=== PATIENT | male | born 1975 | race Two or more races ===

== ENCOUNTER 2017-03-13 19:23 | Emergency (ER) | payer MEDICAID, OTHER ==
[~2017-03-13] VITALS: Ht 172.7 cm; Wt 68.0 kg
--- NOTE | 2017-03-13 19:32 | NUR ---
PT BIBRA TO ER BED 11. PER REPORT, ETOH. ADMITS TO DRINKING. DENIES ANY MEDICAL COMPLAINTS AT THIS TIME. STABLE VITALS. AWAITING MD BASSETT.
--- NOTE | 2017-03-13 21:58 | NUR ---
LEODAN REACH TRUCK OPERATOR AT BEDSIDE FOR EVAL.
[2017-03-13] MEDS ORDERED: THIAMINE HCL 100 MG TABLET PO ONE (22:00)
[2017-03-13] MEDS ORDERED: THIAMINE HCL 100 MG TABLET ONE (22:07)
--- NOTE | 2017-03-13 22:12 | NUR ---
TRIED ROAD TESTING PT. UNSTEADY GAIT. RETURNED TO BED. WILL CONTINUE TO MONITOR.
--- NOTE | 2017-03-13 23:08 | NUR ---
MARSII AT BEDSIDE FOR RE EVAL. PT NOW STATING HE IS SUICIDAL W/ PLAN ON JUMPING OFF A BRIDGE. WILL CONTINUE TO MONITOR.
[2017-03-13 23:32] LABS: BASOPHILS # (AUTO) 0.2 /CMM (0.0-0.2); BASOPHILS % (AUTO) 2.7 % (0.0-2.0); EOSINOPHILS # (AUTO) 0.6 /CMM (0.0-0.7); EOSINOPHILS % (AUTO) 9.6 % (0.0-6.0); HEMATOCRIT 37 % (39-51); HEMOGLOBIN 12.3 g/dL (13.5-17.5); LYMPHOCYTES # (AUTO) 3.1 /CMM (0.8-4.8); LYMPHOCYTES % (AUTO) 48.2 % (20.0-44.0); MEAN CORPUSCULAR HEMOGLOBIN 28 PG (26.0-33.0); MEAN CORPUSCULAR HGB CONC 33 g/dl (31.0-36.0); MEAN CORPUSCULAR VOLUME 86 fL (80-96); MONOCYTES # (AUTO) 0.6 /CMM (0.1-1.30); MONOCYTES % (AUTO) 8.8 % (2.0-12.0); NEUTROPHILS % (AUTO) 30.7 % (43.0-81.0); PLATELET COUNT (AUTO) 605 /CMM (150-450); RDW COEFFICIENT OF VARIATION 21.2 (11.5-15.0); RED BLOOD CELL COUNT(AUTO) 4.37 MIL/uL (4.5-6.0); WHITE BLOOD COUNT (AUTO) 6.4 K/uL (4.3-11.0)
[2017-03-13 23:44] LABS: CALCIUM, SERUM 7.9 mg/dL (8.5-10.1); CREATININE 0.7 mg/dL (0.6-1.3); POTASSIUM 3.7 mmol/L (3.5-5.1)
[2017-03-13 23:50] LABS: ALBUMIN 3.7 g/dL (3.4-5.0); BILIRUBIN,TOTAL 0.2 mg/dL (0.2-1.0); SALICYLATE 7.5 mg/dL (2.8-20.0); TOTAL PROTEIN, SERUM 7.1 g/dL (6.4-8.2)
[2017-03-14] LABS: APPEARANCE,URINE CLEAR (CLEAR); BILIRUBIN,URINE NEGATIVE (NEGATIVE); BLOOD, URINE NEGATIVE Ery/uL (NEGATIVE); COLOR,URINE YELLOW (YELLOW); KETONES,URINE NEGATIVE (NEGATIVE); LEUKOCYTE ESTERASE ,URINE NEGATIVE (NEGATIVE); NITRITE, URINE NEGATIVE (NEGATIVE); PH,URINE 5.5 (5.0-8.0); PROTEIN,URINE NEGATIVE (NEGATIVE); UGLUCOSE NEGATIVE (NEGATIVE); UROBILINOGEN,URINE 0.2 EU/dL (0.2)
--- NOTE | 2017-03-14 02:20 | NUR ---
PT RESTING IN GURNEY. NO SIGNS OF DISTRESS NOTED. PT VITAL SIGNS NORMAL. PT EASILY AROUSABLE. WILL CONT TO MONITOR PT.
--- NOTE | 2017-03-14 10:12 | NUR ---
FOOD TRAY CALLED FOR PT.
[2017-03-14 12:00] VITALS: BP 111/70
== END 2017-03-14 12:04 | disposition home or self-care (01) ==
LOC: ER 19:24
DX: F10.129 Alcohol abuse with intoxication, unspecified (principal); Z88.0 Allergy status to penicillin
CPT/HCPCS: 36415; 80048-TC; 80076-TC; 80305; 81000-TC; 85025-TC; A4606; G0480; Z7610

== ENCOUNTER 2017-08-26 20:05 | Emergency (ER) | payer MEDICAID ==
[~2017-08-26] VITALS: Ht 172.7 cm; Wt 63.5 kg
[2017-08-26 20:50] LABS: BASOPHILS # (AUTO) 0.1 /CMM (0.0-0.2); BASOPHILS % (AUTO) 1.3 % (0.0-2.0); EOSINOPHILS # (AUTO) 0.5 /CMM (0.0-0.7); EOSINOPHILS % (AUTO) 5.8 % (0.0-6.0); HEMATOCRIT 41 % (39-51); HEMOGLOBIN 13.5 g/dL (13.5-17.5); LYMPHOCYTES # (AUTO) 3.1 /CMM (0.8-4.8); LYMPHOCYTES % (AUTO) 36.4 % (20.0-44.0); MEAN CORPUSCULAR HEMOGLOBIN 29 PG (26.0-33.0); MEAN CORPUSCULAR HGB CONC 33 g/dl (31.0-36.0); MEAN CORPUSCULAR VOLUME 87 fL (80-96); MONOCYTES # (AUTO) 0.6 /CMM (0.1-1.30); MONOCYTES % (AUTO) 6.7 % (2.0-12.0); NEUTROPHILS # (AUTO) 4.2 /CMM (1.8-8.9); NEUTROPHILS % (AUTO) 49.8 % (43.0-81.0); PLATELET COUNT (AUTO) 718 /CMM (150-450); WHITE BLOOD COUNT (AUTO) 8.5 K/uL (4.3-11.0)
[2017-08-26 21:00] LABS: CALCIUM, SERUM 8.3 mg/dL (8.5-10.1); CARBON DIOXIDE 28 mmol/L (21-32); CHLORIDE 98 mmol/L (98-107); CREATININE 0.7 mg/dL (0.6-1.3); GLUCOSE 85 mg/dL (74-106); POTASSIUM 3.8 mmol/L (3.5-5.1); SODIUM SERUM 133 mmol/L (136-145); UREA NITROGEN, BLOOD 7 mg/dL (7-18)
[2017-08-26 21:07] LABS: ALANINE AMINOTRANSFERASE 20 U/L (12-78); ALBUMIN 3.6 g/dL (3.4-5.0); ALCOHOL, BLOOD 385 mg/dL (0-0); ALKALINE PHOSPHATASE 68 U/L (46-116); ASPARTATE AMINOTRANSFERASE 24 U/L (15-37); BILIRUBIN,DIRECT 0.1 mg/dL (0.0-0.2); BILIRUBIN,TOTAL 0.1 mg/dL (0.2-1.0); SALICYLATE 8.5 mg/dL (2.8-20.0); TOTAL PROTEIN, SERUM 7.5 g/dL (6.4-8.2)
[2017-08-26 21:08] LABS: ACETAMINOPHEN < 2 ug/ml (10-30)
--- NOTE | 2017-08-26 22:30 | NUR ---
PT SLEEPING IN NAD, VSS WILL CONTINUE TO MONITOR
[2017-08-26 22:42] LABS: APPEARANCE,URINE CLEAR (CLEAR); BILIRUBIN,URINE NEGATIVE (NEGATIVE); BLOOD, URINE NEGATIVE Ery/uL (NEGATIVE); COLOR,URINE YELLOW (YELLOW); KETONES,URINE NEGATIVE (NEGATIVE); LEUKOCYTE ESTERASE ,URINE NEGATIVE (NEGATIVE); NITRITE, URINE NEGATIVE (NEGATIVE); PROTEIN,URINE NEGATIVE (NEGATIVE); UGLUCOSE NEGATIVE (NEGATIVE); UROBILINOGEN,URINE 0.2 EU/dL (0.2)
--- NOTE | 2017-08-27 01:00 | NUR ---
Patient is resting comfortably in bed with eyes closed. Easily aroused. VSS
[2017-08-27] MEDS ORDERED: GUAIFENESIN/CODEINE 10 ML UDC PO PRN (01:30)
[2017-08-27] MEDS ORDERED: TRAMADOL HCL 50 MG TABLET PO ONE (01:30)
--- NOTE | 2017-08-27 04:00 | NUR ---
Patient is resting comfortably in bed with eyes closed. Easily aroused. VSS
--- NOTE | 2017-08-27 07:25 | NUR ---
Patient given written and verbal discharge instructions. Patient verbalizes understanding of instructions. Patient is ambulatory with steady gait. Refuses offer of long term placement. Patient given list of available shelters in surrounding area.
[2017-08-27 07:26] VITALS: BP 110/65
== END 2017-08-27 07:26 | disposition home or self-care (01) ==
LOC: ER 20:06
DX: F10.129 Alcohol abuse with intoxication, unspecified (principal); F14.10 Cocaine abuse, uncomplicated; Z59.0 Homelessness; F20.9 Schizophrenia, unspecified; Z88.0 Allergy status to penicillin
CPT/HCPCS: 36415; 80048; 80076; 80305; 80329; 81001; 85025; 99284; A4606; G0480 ×2; Z7610; 81000-TC

== ENCOUNTER 2017-08-28 19:38 | Emergency (ER) | payer MEDICAID ==
[~2017-08-28] VITALS: Ht 172.7 cm; Wt 63.5 kg
[2017-08-28 19:45] VITALS: BP 136/72
== END 2017-08-28 22:00 | disposition left against medical advice (07) ==
LOC: ER 19:39
DX: Z53.21 Procedure and treatment not carried out due to patient leaving prior to being seen by health care provider (principal)
CPT/HCPCS: A4606; Z7610

== ENCOUNTER 2017-08-29 22:25 | Emergency (ER) | payer MEDICAID ==
[~2017-08-29] VITALS: Ht 167.6 cm; Wt 72.6 kg
--- NOTE | 2017-08-30 03:26 | NUR ---
TO BED 7 A 42 YO MALE PATIENT BIBRA "CP WHILE IN CUSTODY; GIVEN ASA 162MG PO AND 1 NTG SPRAY ESTIMATOR" UPON ARRIVAL, PATIENT IS ALERT AND RESPONSIVE. VSS. NAD NOTED. BREATHING EVEN AND UNLABORED. NONDIAPHORETIC. DENIES CP OR ANY COMPLAINTS. ADMITS TO DRINKING ETOH. COMFORT MEASURES RENDERED.
[2017-08-30 04:35] LABS: BASOPHILS # (AUTO) 0.1 /CMM (0.0-0.2); BASOPHILS % (AUTO) 1.1 % (0.0-2.0); EOSINOPHILS # (AUTO) 0.3 /CMM (0.0-0.7); EOSINOPHILS % (AUTO) 2.4 % (0.0-6.0); HEMATOCRIT 36 % (39-51); HEMOGLOBIN 11.7 g/dL (13.5-17.5); LYMPHOCYTES # (AUTO) 2.4 /CMM (0.8-4.8); LYMPHOCYTES % (AUTO) 17.8 % (20.0-44.0); MEAN CORPUSCULAR HEMOGLOBIN 28 PG (26.0-33.0); MEAN CORPUSCULAR HGB CONC 33 g/dl (31.0-36.0); MEAN CORPUSCULAR VOLUME 86 fL (80-96); MONOCYTES # (AUTO) 1.4 /CMM (0.1-1.30); MONOCYTES % (AUTO) 10.7 % (2.0-12.0); NEUTROPHILS # (AUTO) 9.2 /CMM (1.8-8.9); PLATELET COUNT (AUTO) 591 /CMM (150-450); RDW COEFFICIENT OF VARIATION 17.4 (11.5-15.0); RED BLOOD CELL COUNT(AUTO) 4.13 MIL/uL (4.5-6.0); WHITE BLOOD COUNT (AUTO) 13.5 K/uL (4.3-11.0)
[2017-08-30 04:38] LABS: CALCIUM, SERUM 9.3 mg/dL (8.5-10.1); CARBON DIOXIDE 27 mmol/L (21-32); CHLORIDE 101 mmol/L (98-107); CREATININE 0.7 mg/dL (0.6-1.3); GLUCOSE 84 mg/dL (74-106); POTASSIUM 4.2 mmol/L (3.5-5.1); SODIUM SERUM 139 mmol/L (136-145); UREA NITROGEN, BLOOD 11 mg/dL (7-18)
--- NOTE | 2017-08-30 04:41 | NUR ---
PATIENT UNABLE TO PROVIDE URINE AT THIS TIME. HE SAID, " I TRIED, I CANT GO."
[2017-08-30 04:44] LABS: ALANINE AMINOTRANSFERASE 25 U/L (12-78); ALBUMIN 3.7 g/dL (3.4-5.0); ALCOHOL, BLOOD < 3 mg/dL (0-0); ALKALINE PHOSPHATASE 57 U/L (46-116); ASPARTATE AMINOTRANSFERASE 24 U/L (15-37); BILIRUBIN,DIRECT 0.1 mg/dL (0.0-0.2); BILIRUBIN,TOTAL 0.5 mg/dL (0.2-1.0); SALICYLATE 9.1 mg/dL (2.8-20.0)
[2017-08-30 04:45] LABS: ACETAMINOPHEN 0 ug/ml (10-30)
[2017-08-30 05:55] LABS: APPEARANCE,URINE CLEAR (CLEAR); BILIRUBIN,URINE NEGATIVE (NEGATIVE); BLOOD, URINE NEGATIVE Ery/uL (NEGATIVE); COLOR,URINE YELLOW (YELLOW); KETONES,URINE 1+ (NEGATIVE); LEUKOCYTE ESTERASE ,URINE NEGATIVE (NEGATIVE); NITRITE, URINE NEGATIVE (NEGATIVE); PROTEIN,URINE TRACE mg/dl (NEGATIVE); UGLUCOSE NEGATIVE (NEGATIVE); UROBILINOGEN,URINE 0.2 EU/dL (0.2)
[2017-08-30 06:01] LABS: BACTERIA,URINE Few /HPF (None Seen); MUCUS,URINE Moderate /LPF (None Seen); RBC,URINE 0-2 /HPF (0-2); SQUAMOUS EPITHELIAL CELL,UR Few /HPF (None Seen); WBC,URINE 0-2 /HPF (0-3)
--- NOTE | 2017-08-30 08:01 | NUR ---
PAGED FELI GILLESPIE FOR EVAL
--- NOTE | 2017-08-30 08:26 | NUR ---
Patient is resting comfortably in bed with eyes closed. Easily aroused. VSS
--- NOTE | 2017-08-30 10:11 | NUR ---
FELI, COLLAR FELLER AT FOR PSYCH EVAL.
--- NOTE | 2017-08-30 11:30 | NUR ---
PT ACCEPTED TO [facility] , NUMBER TO GIVE REPORT IS [phone]
--- NOTE | 2017-08-30 11:33 | NUR ---
CALLED [facility] FOR TRANSPORT TO [facility], ETA 1 HOUR, TRIP #[id number]
[2017-08-30 11:36] VITALS: BP 136/73
--- NOTE | 2017-08-30 11:50 | NUR ---
FOOD TRAY PROVIDED AT
--- NOTE | 2017-08-30 12:31 | NUR ---
REPORT GIVEN TO ALBERTO ANDRADE FOR [facility].
--- NOTE | 2017-08-30 12:54 | NUR ---
REPORT GIVEN TO GADIEL SAMAYOA FOR TRANSPORT TO [facility]
== END 2017-08-30 12:55 ==
LOC: ER 22:27
DX: R45.851 Suicidal ideations (principal); D64.9 Anemia, unspecified; F32.9 Major depressive disorder, single episode, unspecified; F20.9 Schizophrenia, unspecified; Z88.0 Allergy status to penicillin
CPT/HCPCS: 36415; 80048; 80076; 80305; 80329; 81001; 85025; 93005; 99285; A4606; G0480 ×2; Z7610; 81000-TC

== ENCOUNTER 2017-09-12 20:02 | Emergency (ER) | payer MEDICAID ==
[~2017-09-12] VITALS: Ht 175.3 cm; Wt 65.8 kg
[2017-09-12 20:31] LABS: BASOPHILS # (AUTO) 0.2 /CMM (0.0-0.2); BASOPHILS % (AUTO) 1.6 % (0.0-2.0); EOSINOPHILS # (AUTO) 0.7 /CMM (0.0-0.7); EOSINOPHILS % (AUTO) 7.4 % (0.0-6.0); HEMATOCRIT 38 % (39-51); LYMPHOCYTES # (AUTO) 3.2 /CMM (0.8-4.8); LYMPHOCYTES % (AUTO) 33.3 % (20.0-44.0); MEAN CORPUSCULAR HEMOGLOBIN 29 PG (26.0-33.0); MEAN CORPUSCULAR HGB CONC 34 g/dl (31.0-36.0); MEAN CORPUSCULAR VOLUME 84 fL (80-96); MONOCYTES # (AUTO) 0.3 /CMM (0.1-1.30); MONOCYTES % (AUTO) 3.5 % (2.0-12.0); NEUTROPHILS # (AUTO) 5.3 /CMM (1.8-8.9); NEUTROPHILS % (AUTO) 54.2 % (43.0-81.0); PLATELET COUNT (AUTO) 571 /CMM (150-450); RDW COEFFICIENT OF VARIATION 16.1 (11.5-15.0); RED BLOOD CELL COUNT(AUTO) 4.53 MIL/uL (4.5-6.0); WHITE BLOOD COUNT (AUTO) 9.7 K/uL (4.3-11.0)
--- NOTE | 2017-09-12 20:36 | NUR ---
"I FEEL LIKE SOMEONE'S TRYING TO KILL ME; IT'S NOT INSIDE MY HEAD, IT'S OUTSIDE" PATIENT ADMITTED DRINKING, PATIENT IS AWAKE AND ALERT, NOT IN DISTRESS. VSS
[2017-09-12 21:15] LABS: CALCIUM, SERUM 8.5 mg/dL (8.5-10.1); CREATININE 0.8 mg/dL (0.6-1.3); POTASSIUM 3.1 mmol/L (3.5-5.1)
--- NOTE | 2017-09-12 23:41 | NUR ---
PT WAS TAKEN TO CT
--- NOTE | 2017-09-13 05:10 | NUR ---
art operating room assistant at bedside for eval.
--- NOTE | 2017-09-13 06:07 | NUR ---
pt ok to discharge per dr razo. Patient discharged to home in stable condition. Written and verbal after care instructions given. Patient verbalizes understanding of instruction.Patient is awake and alert to self, day, and place. pt ambulatory with a steady gait
[2017-09-13 06:08] VITALS: BP 115/69
== END 2017-09-13 06:09 | disposition home or self-care (01) ==
LOC: ER 20:03
DX: F10.129 Alcohol abuse with intoxication, unspecified (principal); F44.0 Dissociative amnesia; F20.9 Schizophrenia, unspecified; D64.9 Anemia, unspecified; Z88.0 Allergy status to penicillin; Z59.0 Homelessness; Z60.2 Problems related to living alone
CPT/HCPCS: 36415; 80048-TC; 85025-TC; A4606; G0480; Z7610

== ENCOUNTER 2017-09-19 20:42 | Emergency (ER) | payer MEDICAID ==
[~2017-09-19] VITALS: Ht 172.7 cm; Wt 72.6 kg
[2017-09-19 21:38] LABS: BASOPHILS # (AUTO) 0.1 /CMM (0.0-0.2); BASOPHILS % (AUTO) 1.1 % (0.0-2.0); EOSINOPHILS # (AUTO) 0.5 /CMM (0.0-0.7); EOSINOPHILS % (AUTO) 5.6 % (0.0-6.0); HEMATOCRIT 38 % (39-51); LYMPHOCYTES # (AUTO) 2.7 /CMM (0.8-4.8); LYMPHOCYTES % (AUTO) 33.1 % (20.0-44.0); MEAN CORPUSCULAR HEMOGLOBIN 29 PG (26.0-33.0); MEAN CORPUSCULAR HGB CONC 34 g/dl (31.0-36.0); MEAN CORPUSCULAR VOLUME 84 fL (80-96); MONOCYTES # (AUTO) 0.4 /CMM (0.1-1.30); MONOCYTES % (AUTO) 4.6 % (2.0-12.0); NEUTROPHILS # (AUTO) 4.4 /CMM (1.8-8.9); NEUTROPHILS % (AUTO) 55.6 % (43.0-81.0); PLATELET COUNT (AUTO) 469 /CMM (150-450); RDW COEFFICIENT OF VARIATION 16.5 (11.5-15.0); RED BLOOD CELL COUNT(AUTO) 4.58 MIL/uL (4.5-6.0); WHITE BLOOD COUNT (AUTO) 8.1 K/uL (4.3-11.0)
[2017-09-19 21:48] LABS: CREATININE 0.7 mg/dL (0.6-1.3); POTASSIUM 3.7 mmol/L (3.5-5.1)
[2017-09-19 21:55] LABS: ALBUMIN 3.3 g/dL (3.4-5.0); BILIRUBIN,DIRECT 0.1 mg/dL (0.0-0.2); BILIRUBIN,TOTAL 0.1 mg/dL (0.2-1.0); SALICYLATE 9.4 mg/dL (2.8-20.0); TOTAL PROTEIN, SERUM 7.1 g/dL (6.4-8.2)
[2017-09-19 21:57] LABS: CALCIUM, SERUM 8.2 mg/dL (8.5-10.1)
--- NOTE | 2017-09-19 22:30 | NUR ---
PT BIB SELF FROM SELF, PT STATES HE WANTS TO KILL HIMSELF DENIES HI NO PLAN. + ETOH. VSS
--- NOTE | 2017-09-19 22:33 | NUR ---
CALLED ART FOR PSYCH EVAL, SAID HE CAN NOT SEE PT WITH THAT HIGH OF AN ALCOHOL (360), WILL CALL BACK FOR PSYCH EVAL ONCE PT'S ALCOHOL LEVEL GOES DOWN.
--- NOTE | 2017-09-19 22:53 | NUR ---
REFUSED TO GIVE URINE SAMPLE AT THIS TIME.
[2017-09-20 06:13] LABS: BILIRUBIN,URINE NEGATIVE (NEGATIVE); BLOOD, URINE NEGATIVE Ery/uL (NEGATIVE); COLOR,URINE YELLOW (YELLOW); KETONES,URINE NEGATIVE (NEGATIVE); LEUKOCYTE ESTERASE ,URINE TRACE (NEGATIVE); NITRITE, URINE POSITIVE (NEGATIVE); PROTEIN,URINE NEGATIVE (NEGATIVE); UGLUCOSE NEGATIVE (NEGATIVE); UROBILINOGEN,URINE 0.2 EU/dL (0.2)
[2017-09-20 06:16] LABS: APPEARANCE,URINE SLIGHTLY CLOUDY (CLEAR)
[2017-09-20 06:26] LABS: BACTERIA,URINE 3+ /HPF (None Seen); RBC,URINE 0-2 /HPF (0-2); SQUAMOUS EPITHELIAL CELL,UR 0-2 /HPF (None Seen)
--- NOTE | 2017-09-20 07:28 | NUR ---
APPEARS ASLEEP,RESP EVEN,UNLABORED,EASILY AROUSABLE, AWAITING MED CLEARANCE FOR PSYCH EVAL
--- NOTE | 2017-09-20 08:07 | NUR ---
SUPERVISOR CD AREA AT BEDSIDE FOR BLOOD DRAW.
--- NOTE | 2017-09-20 08:13 | NUR ---
[facility] [phone]
--- NOTE | 2017-09-20 09:10 | NUR ---
sandy refund clerk at bedside for eval
--- NOTE | 2017-09-20 09:52 | NUR ---
CALLED TRANSPORT ETA IS 40MIN PER [facility]AN TRIP NUMBER: [id number]
--- NOTE | 2017-09-20 10:07 | NUR ---
CALLED [facility] [phone] FAXED RELATED INFO TO [phone]
[2017-09-20 11:01] VITALS: BP 132/89
--- NOTE | 2017-09-20 11:10 | NUR ---
PATIENT TRANSFERRED TO [facility] VIA AMBULANCE. DISCHARGE INSTRUCTIONS PROVIDED TO PATIENT, PATIENT VERBALIZES UNDERSTANDING. EMT ALSO GIVEN REPORT. TRANSFERRED IN STABLE CONDITION TO [facility] FOR VOLUNTARY ADMISSION.
== END 2017-09-20 11:03 ==
LOC: ER 20:46
DX: F10.129 Alcohol abuse with intoxication, unspecified (principal); R45.851 Suicidal ideations; F20.9 Schizophrenia, unspecified; Z88.0 Allergy status to penicillin
CPT/HCPCS: 36415 ×2; 80048; 80076; 80305; 80329; 81001; 85025; 87077; 87086; 87186; 99285; A4606; G0480 ×3; Z7610; 81000-TC

== ENCOUNTER 2017-10-22 20:37 | Emergency (ER) | payer MEDICAID ==
[~2017-10-22] VITALS: Ht 177.8 cm; Wt 72.6 kg
--- NOTE | 2017-10-22 20:37 | NUR ---
"FOUND ON THE STREET DRUNK" S/S TRAUMA. NO SOB OR PAIN. VSS NAD. WILL CONTINUE TO MONITOR FOR THE REST OF THE SHIFT.
[2017-10-22 23:26] VITALS: BP 108/58
[2017-10-22 23:45] LABS: BASOPHILS # (AUTO) 0.1 /CMM (0.0-0.2); BASOPHILS % (AUTO) 1.5 % (0.0-2.0); EOSINOPHILS % (AUTO) 4.9 % (0.0-6.0); HEMATOCRIT 35 % (39-51); HEMOGLOBIN 11.9 g/dL (13.5-17.5); LYMPHOCYTES # (AUTO) 3.3 /CMM (0.8-4.8); LYMPHOCYTES % (AUTO) 39.4 % (20.0-44.0); MEAN CORPUSCULAR HGB CONC 34 g/dl (31.0-36.0); MEAN CORPUSCULAR VOLUME 79 fL (80-96); MONOCYTES # (AUTO) 0.5 /CMM (0.1-1.30); MONOCYTES % (AUTO) 5.6 % (2.0-12.0); NEUTROPHILS % (AUTO) 48.6 % (43.0-81.0); PLATELET COUNT (AUTO) 467 /CMM (150-450); RDW COEFFICIENT OF VARIATION 17.7 (11.5-15.0); RED BLOOD CELL COUNT(AUTO) 4.44 MIL/uL (4.5-6.0); WHITE BLOOD COUNT (AUTO) 8.3 K/uL (4.3-11.0)
[2017-10-22 23:57] LABS: CALCIUM, SERUM 7.8 mg/dL (8.5-10.1); CREATININE 0.7 mg/dL (0.6-1.3); POTASSIUM 3.8 mmol/L (3.5-5.1)
[2017-10-23 00:13] LABS: ALBUMIN 3.4 g/dL (3.4-5.0); BILIRUBIN,DIRECT 0.1 mg/dL (0.0-0.2); BILIRUBIN,TOTAL 0.5 mg/dL (0.2-1.0); TOTAL PROTEIN, SERUM 6.8 g/dL (6.4-8.2)
== END 2017-10-22 23:27 | disposition home or self-care (01) ==
LOC: ER 20:39
DX: F10.129 Alcohol abuse with intoxication, unspecified (principal); F20.9 Schizophrenia, unspecified; Z88.0 Allergy status to penicillin
CPT/HCPCS: 36415; 80048-TC; 80076-TC; 85025-TC; A4606; G0480; Z7610